=== PATIENT | male | born 1940 | race African-American/Black ===

== ENCOUNTER 2017-04-01 05:42 | Inpatient (IN) | payer MEDICARE ==
[~2017-04-01] VITALS: Ht 188 cm; Wt 92.1 kg
--- NOTE | 2017-04-01 06:07 | NUR ---
Pt BIB private ambulance from [facility] for medical clearance for psych unit.
[2017-04-01] MEDS ORDERED: GABA-534 PO (06:11)
[2017-04-01] MEDS ORDERED: IBUP-1955 PO (06:11)
[2017-04-01] MEDS ORDERED: DULO60CA45 PO (06:11)
[2017-04-01] MEDS ORDERED: QUET200T PO (06:11)
[2017-04-01] MEDS ORDERED: GABA600T2 PO (06:11)
[2017-04-01] MEDS ORDERED: METO25TA6 PO (06:11)
[2017-04-01] MEDS ORDERED: TRAMADOL HCL 50 MG TABLET PO ONE (07:00)
[2017-04-01] MEDS ORDERED: GABAPENTIN 300 MG CAPSULE PO ONE ×2 (07:15→07:30)
[2017-04-01] MEDS ORDERED: TRAMADOL HCL 50 MG TABLET ONE (07:21)
--- NOTE | 2017-04-01 07:21 | NUR ---
Report given to Kenia day shift RN.
--- NOTE | 2017-04-01 07:30 | NUR ---
[facility] tray provided. pt finished it with good appetite
[2017-04-01] MEDS ORDERED: GABAPENTIN 300 MG CAPSULE ONE ×2 (07:42→07:52)
[2017-04-01 08:15] VITALS: BP 131/70
--- NOTE | 2017-04-01 08:16 | NUR ---
pt transfered to [facility] in stable condition with all his belongings
[2017-04-01] MEDS ORDERED: TEMAZEPAM 7.5 MG CAPSULE PO PRN (08:45)
[2017-04-01] MEDS ORDERED: MAGNESIUM HYDROXIDE 30 ML LIQUID UDC PO PRN (08:45)
[2017-04-01] MEDS ORDERED: DULOXETINE 60 MG CAPSULE.DR PO ONE (09:00)
--- NOTE | 2017-04-01 10:00 | NUR ---
0815 Admit to [facility] ER via w/c , placed 5150 DTS ,Depressed with SI. Admission done and Dr. Cuello and GEOLOGIC TECHNICIAN Oren Jeong notified of the admission with order.
[2017-04-01] MEDS ORDERED: TOPIRAMATE 25 MG TABLET PO SCH (13:00)
[2017-04-01] MEDS ORDERED: GABAPENTIN 300 MG CAPSULE PO SCH (13:00)
[2017-04-01] MEDS ORDERED: PNEUMOCOCCAL 23-VAL P-SAC VAC 0.5 ML VIAL IM ONE (13:45)
[2017-04-01 15:00] VITALS: BP 136/86
[2017-04-01] MEDS: METOPROLOL TARTRATE 25 MG TABLET PO SCH (16:22)
[2017-04-01 20:14] VITALS: BP 111/61
[2017-04-01] MEDS: LORAZEPAM 1 MG TABLET PO PRN (21:06)
[2017-04-01] MEDS: FINASTERIDE 5 MG TABLET PO SCH (21:06)
[2017-04-01] MEDS: QUETIAPINE FUMARATE 200 MG TABLET PO SCH (22:55)
[2017-04-01] MEDS: TRAZODONE 100 MG TABLET PO SCH (22:55)
[2017-04-01] MEDS ORDERED: TRAZODONE 100 MG TABLET ONE (23:12)
[2017-04-02 07:30] VITALS: BP 187/95
[2017-04-02] MEDS: METOPROLOL TARTRATE 25 MG TABLET PO SCH (08:15)
[2017-04-02] MEDS: ALFUZOSIN HCL 10 MG TAB.SR.24H PO SCH (08:19)
[2017-04-02] MEDS: DIVALPROEX 250 MG TABLET.DR PO SCH ×3 (09:30→16:24)
[2017-04-02] MEDS: QUETIAPINE FUMARATE 25 MG TABLET PO SCH (09:30)
[2017-04-02 16:26] VITALS: BP 152/77
[2017-04-02 20:54] VITALS: BP 133/81
[2017-04-02] MEDS: TRAZODONE 100 MG TABLET PO SCH (21:00)
[2017-04-02] MEDS: FINASTERIDE 5 MG TABLET PO SCH (21:08)
[2017-04-02] MEDS: ATORVASTATIN 10 MG TABLET PO SCH (21:08)
[2017-04-02] MEDS: QUETIAPINE FUMARATE 200 MG TABLET PO SCH (21:08)
[2017-04-03 07:30] VITALS: BP 139/74
[2017-04-03] MEDS: QUETIAPINE FUMARATE 25 MG TABLET PO SCH (08:27)
[2017-04-03] MEDS: DIVALPROEX 250 MG TABLET.DR PO SCH ×3 (08:27→17:16)
[2017-04-03] MEDS: METOPROLOL TARTRATE 25 MG TABLET PO SCH (08:27)
[2017-04-03] MEDS: ALFUZOSIN HCL 10 MG TAB.SR.24H PO SCH (09:33)
[2017-04-03 17:12] VITALS: BP 139/82
[2017-04-03 19:50] VITALS: BP 135/76
[2017-04-03] MEDS: QUETIAPINE FUMARATE 200 MG TABLET PO SCH (21:31)
[2017-04-03] MEDS: ATORVASTATIN 10 MG TABLET PO SCH (21:31)
[2017-04-03] MEDS: FINASTERIDE 5 MG TABLET PO SCH (21:32)
[2017-04-03] MEDS: TRAZODONE 100 MG TABLET PO SCH (21:32)
[2017-04-04 07:45] VITALS: BP 127/78
[2017-04-04] MEDS: QUETIAPINE FUMARATE 100 MG TABLET PO SCH (10:03)
[2017-04-04] MEDS: DIVALPROEX 250 MG TABLET.DR PO SCH ×3 (10:03→17:52)
[2017-04-04] MEDS: METOPROLOL TARTRATE 25 MG TABLET PO SCH (10:04)
[2017-04-04] MEDS: ALFUZOSIN HCL 10 MG TAB.SR.24H PO SCH (10:04)
--- NOTE | 2017-04-04 11:30 | NUR ---
Initial DC Plan: Patient jorge resides at the [facility] ([facility]) [[address]; [place] [address]]. Patient does not want any family involved in his discharge plans. SW will follow up with MD and patient to discuss most appropriate discharge plans. Patient will be provided a brief substance abuse intervention. SW will form a safe and proper discharge.
--- NOTE | 2017-04-04 11:45 | NUR ---
Fire[employer] Reporting: SUSI submitted Mental Health Report to [facility] on 04/04.
[2017-04-04] MEDS: ACETAMINOPHEN 325 MG TABLET PO PRN (12:09)
[2017-04-04] MEDS: GABAPENTIN 300 MG CAPSULE PO SCH ×2 (14:18→17:52)
[2017-04-04 16:41] VITALS: BP 140/87
[2017-04-04] MEDS: TRAZODONE 100 MG TABLET PO SCH (20:00)
[2017-04-04] MEDS: ATORVASTATIN 10 MG TABLET PO SCH (20:01)
[2017-04-04] MEDS: FINASTERIDE 5 MG TABLET PO SCH (20:01)
[2017-04-04] MEDS: QUETIAPINE FUMARATE 200 MG TABLET PO SCH (20:02)
[2017-04-04 20:48] VITALS: BP 160/88
--- NOTE | 2017-04-04 22:00 | NUR ---
received to care, lying in bed, pleasant upon approach. no interactions, noted, with peers. compliant with medications and staff direction. as of 2200, he appears to be asleep. no distress noted. will continue to monitor closely.
[2017-04-05] MEDS: LORAZEPAM 1 MG TABLET PO PRN (02:01)
--- NOTE | 2017-04-05 02:01 | NUR ---
pt is now awake. c/o anxiety. PRN ativan was given at this time.
--- NOTE | 2017-04-05 02:40 | NUR ---
appears to be asleep. no distress noted.
[2017-04-05 08:00] VITALS: BP 143/97
[2017-04-05] MEDS: GABAPENTIN 300 MG CAPSULE PO SCH ×3 (08:14→17:35)
[2017-04-05] MEDS: QUETIAPINE FUMARATE 100 MG TABLET PO SCH (08:14)
[2017-04-05] MEDS: METOPROLOL TARTRATE 25 MG TABLET PO SCH (08:15)
[2017-04-05] MEDS: DIVALPROEX 250 MG TABLET.DR PO SCH ×3 (08:15→17:35)
[2017-04-05] MEDS: ALFUZOSIN HCL 10 MG TAB.SR.24H PO SCH (08:17)
[2017-04-05 16:00] VITALS: BP 132/66
--- NOTE | 2017-04-05 16:08 | NUR ---
[employer] Note: Subjective: "Its all about their careers and the money. Why is every conversation about money?" Objective: Pt sat with good posture and made consistent eye contact throughout the session. Pt displayed a full range of affect, laughing as he made jokes and animating his suicide attempt with a frown. Pt presented with paranoid delusions as evidenced by statements of being followed and recorded by the [facility] for 6 months and aliens walking among us. Pt presented as depressed because he stated he wanted to take enough drugs to blow up his heart. Pt appears to have insight into his situation because he stated his two options are morphine or to suffer and that nobody will help him get his morphine because they think he's "a junkie." Pt expressed annoyance with his siblings who only call when they want money. Assessment: SW will encourage pt to establish coping mechanisms for his despair, frustration, and chronic pain. SW will encourage pt to build relationships with his peers to lessen his isolation. Plan: Pt will attend group again tomorrow. Pt will advocate for himself if he feels he is not getting the treatment he deserves.
[2017-04-05] MEDS: IBUPROFEN 600 MG TABLET PO PRN (18:19)
[2017-04-05] MEDS: MAG HYDROX/AL HYDROX/SIMETH 30 ML LIQUID UDC PO PRN (19:45)
[2017-04-05 20:00] VITALS: BP 162/87
[2017-04-05] MEDS: TRAZODONE 100 MG TABLET PO SCH (20:31)
[2017-04-05] MEDS: QUETIAPINE FUMARATE 200 MG TABLET PO SCH (20:35)
[2017-04-05] MEDS: FINASTERIDE 5 MG TABLET PO SCH (20:36)
[2017-04-05] MEDS: ATORVASTATIN 10 MG TABLET PO SCH (20:36)
--- NOTE | 2017-04-05 22:00 | NUR ---
received to care, watching tv with peers, pleasant upon approach. remains compliant with medications and staff direction. denies SI, or any desire to harm self, or others. as of 2199, he appears to be asleep. no distress noted. will continue to monitor closely.
[2017-04-06 07:30] VITALS: BP 150/90
[2017-04-06] MEDS: IBUPROFEN 600 MG TABLET PO PRN (08:16)
[2017-04-06] MEDS: GABAPENTIN 300 MG CAPSULE PO SCH ×3 (08:16→16:25)
[2017-04-06] MEDS: QUETIAPINE FUMARATE 100 MG TABLET PO SCH (08:17)
[2017-04-06] MEDS: ALFUZOSIN HCL 10 MG TAB.SR.24H PO SCH (08:18)
[2017-04-06] MEDS: METOPROLOL TARTRATE 25 MG TABLET PO SCH (08:20)
[2017-04-06] MEDS: DIVALPROEX 250 MG TABLET.DR PO SCH ×3 (08:20→16:25)
[2017-04-06 15:00] VITALS: BP 134/82
[2017-04-06 20:03] VITALS: BP 136/81
[2017-04-06] MEDS: TRAZODONE 100 MG TABLET PO SCH (20:17)
[2017-04-06] MEDS: ATORVASTATIN 10 MG TABLET PO SCH (20:17)
[2017-04-06] MEDS: FINASTERIDE 5 MG TABLET PO SCH (20:17)
[2017-04-06] MEDS: QUETIAPINE FUMARATE 200 MG TABLET PO SCH (20:17)
[2017-04-07 07:30] VITALS: BP 157/79
[2017-04-07] MEDS: DIVALPROEX 250 MG TABLET.DR PO SCH ×3 (08:24→16:27)
[2017-04-07] MEDS: LEVOTHYROXINE SODIUM 50 MCG TABLET PO SCH (08:24)
[2017-04-07] MEDS: GABAPENTIN 300 MG CAPSULE PO SCH ×3 (08:24→16:27)
[2017-04-07] MEDS: ALFUZOSIN HCL 10 MG TAB.SR.24H PO SCH (08:25)
[2017-04-07] MEDS: METOPROLOL TARTRATE 25 MG TABLET PO SCH (08:29)
[2017-04-07 15:00] VITALS: BP 155/89
[2017-04-07 20:17] VITALS: BP 132/77
[2017-04-07] MEDS: FINASTERIDE 5 MG TABLET PO SCH (20:36)
[2017-04-07] MEDS: TRAZODONE 100 MG TABLET PO SCH (20:38)
[2017-04-07] MEDS: QUETIAPINE FUMARATE 200 MG TABLET PO SCH (20:38)
[2017-04-07] MEDS: ATORVASTATIN 10 MG TABLET PO SCH (20:38)
[2017-04-08 07:30] VITALS: BP 149/95
[2017-04-08] MEDS: LEVOTHYROXINE SODIUM 50 MCG TABLET PO SCH (08:04)
[2017-04-08] MEDS: GABAPENTIN 300 MG CAPSULE PO SCH ×3 (08:04→16:00)
[2017-04-08] MEDS: ALFUZOSIN HCL 10 MG TAB.SR.24H PO SCH (08:04)
[2017-04-08] MEDS: METOPROLOL TARTRATE 25 MG TABLET PO SCH (08:05)
[2017-04-08] MEDS: DIVALPROEX 250 MG TABLET.DR PO SCH ×2 (08:06→12:03)
[2017-04-08] MEDS: FLUOXETINE HCL 20 MG CAPSULE PO SCH (08:06)
[2017-04-08 15:16] VITALS: BP 145/78
[2017-04-08] MEDS: MAG HYDROX/AL HYDROX/SIMETH 30 ML LIQUID UDC PO PRN (15:28)
[2017-04-08] MEDS: FINASTERIDE 5 MG TABLET PO SCH (20:26)
[2017-04-08] MEDS: QUETIAPINE FUMARATE 200 MG TABLET PO SCH (20:27)
[2017-04-08] MEDS: ATORVASTATIN 10 MG TABLET PO SCH (20:28)
[2017-04-08] MEDS: TRAZODONE 100 MG TABLET PO SCH (20:28)
[2017-04-08] MEDS: DIVALPROEX 500 MG TABLET.DR PO SCH (20:29)
[2017-04-08 20:37] VITALS: BP 137/85
[2017-04-09] MEDS: LEVOTHYROXINE SODIUM 50 MCG TABLET PO SCH (06:58)
[2017-04-09 07:30] VITALS: BP 164/94
[2017-04-09 07:39] LABS: BASOPHILS # (AUTO) 0.1 K/uL (0.0-8.0); BASOPHILS % (AUTO) 1.2 % (0.0-2.0); EOSINOPHILS # (AUTO) 0.1 K/uL (0.0-0.7); EOSINOPHILS % (AUTO) 2.9 % (0.0-7.0); HEMATOCRIT 36.3 % (36.7-47.1); HEMOGLOBIN 11.9 g/dL (12.5-16.3); LYMPHOCYTES # (AUTO) 1.5 K/uL (20.0-40.0); LYMPHOCYTES % (AUTO) 33.2 % (20.5-51.5); MEAN CORPUSCULAR HEMOGLOBIN 28.1 uug (23.8-33.4); MEAN CORPUSCULAR HGB CONC 33 g/dL (32.5-36.3); MONOCYTES # (AUTO) 0.4 K/uL (2.0-10.0); MONOCYTES % (AUTO) 8.8 % (0.0-11.0); NEUTROPHILS # (AUTO) 2.5 K/uL (1.8-8.9); NEUTROPHILS % (AUTO) 53.9 % (38.5-71.5); PLATELET COUNT (AUTO) 184 K/uL (152-348); RED BLOOD CELL COUNT(AUTO) 4.22 MIL/uL (4.06-5.63); WHITE BLOOD COUNT (AUTO) 4.6 K/uL (3.6-10.2)
[2017-04-09 07:48] LABS: CARBON DIOXIDE 30 mmol/L (21-32); CHLORIDE 104 mmol/L (98-107); CREATININE 1.1 mg/dL (0.6-1.3); GLUCOSE 108 mg/dL (74-106); MAGNESIUM 2.2 mg/dL (1.8-2.4); PHOSPHOROUS 3.6 mg/dL (2.5-4.9); POTASSIUM 4.2 mmol/L (3.5-5.1); UREA NITROGEN, BLOOD 19 mg/dL (7-18)
[2017-04-09] MEDS: DIVALPROEX 250 MG TABLET.DR PO SCH ×2 (08:00→12:12)
[2017-04-09] MEDS: FLUOXETINE HCL 20 MG CAPSULE PO SCH (08:00)
[2017-04-09] MEDS: GABAPENTIN 300 MG CAPSULE PO SCH ×3 (08:00→16:17)
[2017-04-09] MEDS: ALFUZOSIN HCL 10 MG TAB.SR.24H PO SCH (08:00)
[2017-04-09] MEDS: METOPROLOL TARTRATE 25 MG TABLET PO SCH (08:01)
[2017-04-09 16:00] VITALS: BP 133/61
[2017-04-09 19:59] VITALS: BP 148/85
[2017-04-09] MEDS: QUETIAPINE FUMARATE 200 MG TABLET PO SCH (21:06)
[2017-04-09] MEDS: ATORVASTATIN 10 MG TABLET PO SCH (21:06)
[2017-04-09] MEDS: DIVALPROEX 500 MG TABLET.DR PO SCH (21:06)
[2017-04-09] MEDS: FINASTERIDE 5 MG TABLET PO SCH (21:06)
[2017-04-09] MEDS: TRAZODONE 100 MG TABLET PO SCH (21:06)
[2017-04-10] MEDS: LEVOTHYROXINE SODIUM 50 MCG TABLET PO SCH (06:28)
[2017-04-10 07:30] VITALS: BP 163/97
[2017-04-10] MEDS: FLUOXETINE HCL 20 MG CAPSULE PO SCH (08:23)
[2017-04-10] MEDS: GABAPENTIN 300 MG CAPSULE PO SCH ×3 (08:23→16:26)
[2017-04-10] MEDS: DIVALPROEX 250 MG TABLET.DR PO SCH ×2 (08:23→12:22)
[2017-04-10] MEDS: ALFUZOSIN HCL 10 MG TAB.SR.24H PO SCH (08:23)
[2017-04-10] MEDS: METOPROLOL TARTRATE 25 MG TABLET PO SCH (08:26)
[2017-04-10 15:23] VITALS: BP 161/86
[2017-04-10 19:37] VITALS: BP 166/82
[2017-04-10] MEDS: ACETAMINOPHEN 325 MG TABLET PO PRN (20:06)
[2017-04-10] MEDS: QUETIAPINE FUMARATE 200 MG TABLET PO SCH (20:39)
[2017-04-10] MEDS: FINASTERIDE 5 MG TABLET PO SCH (20:39)
[2017-04-10] MEDS: ATORVASTATIN 10 MG TABLET PO SCH (20:39)
[2017-04-10] MEDS: DIVALPROEX 500 MG TABLET.DR PO SCH (20:40)
[2017-04-10] MEDS: TRAZODONE 100 MG TABLET PO SCH (20:40)
--- NOTE | 2017-04-10 22:00 | NUR ---
received to care, in activity room, with peers, watching tv. pleasant upon approach. compliant with medications and staff direction. denies SI, or any desire to harm self, or others. as of 2199, he appears to be asleep. no distress noted. will continue to monitor closely.
[2017-04-11] MEDS: LEVOTHYROXINE SODIUM 50 MCG TABLET PO SCH (06:39)
[2017-04-11 07:30] VITALS: BP 182/96
[2017-04-11] MEDS: ALFUZOSIN HCL 10 MG TAB.SR.24H PO SCH (08:16)
[2017-04-11] MEDS: METOPROLOL TARTRATE 25 MG TABLET PO SCH (08:17)
[2017-04-11] MEDS: GABAPENTIN 300 MG CAPSULE PO SCH ×3 (08:17→17:45)
[2017-04-11] MEDS: FLUOXETINE HCL 20 MG CAPSULE PO SCH (08:18)
[2017-04-11] MEDS: DIVALPROEX 250 MG TABLET.DR PO SCH ×2 (08:18→13:31)
[2017-04-11] MEDS: QUETIAPINE FUMARATE 100 MG TABLET PO SCH (08:18)
[2017-04-11 08:43] LABS: THYROID STIMULATING HORMONE 5.607 mIU/mL (0.358-3.740)
[2017-04-11] MEDS ORDERED: hydrALAZINE HCL 25 MG TABLET PO PRN (12:30)
[2017-04-11] MEDS ORDERED: METOPROLOL TARTRATE 50 MG TABLET PO ONE (12:30)
[2017-04-11] MEDS: METOPROLOL TARTRATE 50 MG TABLET PO SCH ×2 (12:34→20:33)
--- NOTE | 2017-04-11 14:49 | NUR ---
Referred by deputy clerk of court as patient requesting non compliance food items with current diet(cardiac) Patient is requesting 3 cooked egg Spoke with the patient and explain the reason why dietary can not provide all three eggs per day. spoke with the charge nurse and request to speak with MD about current diet restrictions as patient lipids labs wnl, rec 2gm NA diet, patient has elevated blood pressure. Addendum: 04/11/17 at [address] Amended: Links added.
[2017-04-11 15:46] VITALS: BP 152/92
--- NOTE | 2017-04-11 19:27 | NUR ---
denies s.i. no out bursts in day room and minimal peer interaction with room mate continue to monitor for safety
[2017-04-11 20:14] VITALS: BP 166/84
[2017-04-11] MEDS: FINASTERIDE 5 MG TABLET PO SCH (20:32)
[2017-04-11] MEDS: MAG HYDROX/AL HYDROX/SIMETH 30 ML LIQUID UDC PO PRN (20:32)
[2017-04-11] MEDS: ATORVASTATIN 10 MG TABLET PO SCH (20:32)
[2017-04-11] MEDS: DIVALPROEX 500 MG TABLET.DR PO SCH (20:33)
[2017-04-11] MEDS: QUETIAPINE FUMARATE 200 MG TABLET PO SCH (20:33)
[2017-04-11] MEDS: TRAZODONE 100 MG TABLET PO SCH (20:33)
--- NOTE | 2017-04-11 22:00 | NUR ---
received to care, sitting in activity room, with peers, watching tv. pleasant upon approach. compliant with medications and staff direction. denies SI, or any desire to harm self, or others. as of 2199, he appears to be asleep. no distress noted. will continue to monitor closely.
[2017-04-12 00:30] VITALS: BP 148/76
[2017-04-12] MEDS: LEVOTHYROXINE SODIUM 50 MCG TABLET PO SCH (06:07)
[2017-04-12] MEDS: AMLODIPINE 10 MG TABLET PO SCH (09:00)
[2017-04-12] MEDS: METOPROLOL TARTRATE 50 MG TABLET PO SCH ×2 (09:00→20:24)
[2017-04-12] MEDS: GABAPENTIN 300 MG CAPSULE PO SCH ×3 (09:27→17:57)
[2017-04-12] MEDS: QUETIAPINE FUMARATE 100 MG TABLET PO SCH (09:28)
[2017-04-12] MEDS: LORAZEPAM 1 MG TABLET PO PRN (09:28)
[2017-04-12] MEDS: FLUOXETINE PO SCH (09:28)
[2017-04-12] MEDS: DIVALPROEX 250 MG TABLET.DR PO SCH ×2 (09:28→13:43)
[2017-04-12] MEDS: ALFUZOSIN HCL 10 MG TAB.SR.24H PO SCH (09:29)
[2017-04-12 16:15] VITALS: BP 150/86
[2017-04-12] MEDS: ACETAMINOPHEN 325 MG TABLET PO PRN (20:21)
[2017-04-12] MEDS: FINASTERIDE 5 MG TABLET PO SCH (20:22)
[2017-04-12] MEDS: ATORVASTATIN 10 MG TABLET PO SCH (20:22)
[2017-04-12] MEDS: QUETIAPINE FUMARATE 200 MG TABLET PO SCH (20:22)
[2017-04-12] MEDS: TRAZODONE 100 MG TABLET PO SCH (20:23)
[2017-04-12] MEDS: DIVALPROEX 500 MG TABLET.DR PO SCH (20:23)
[2017-04-12 20:39] VITALS: BP 141/70
--- NOTE | 2017-04-13 01:29 | NUR ---
pt is now awake. PRN restoril given for insomnia.
--- NOTE | 2017-04-13 02:05 | NUR ---
appears to be asleep. no distress noted.
[2017-04-13] MEDS: LEVOTHYROXINE SODIUM 50 MCG TABLET PO SCH (06:27)
[2017-04-13] MEDS: ACETAMINOPHEN 325 MG TABLET PO PRN (07:45)
[2017-04-13] MEDS: AMLODIPINE 10 MG TABLET PO SCH (09:05)
[2017-04-13] MEDS: ALFUZOSIN HCL 10 MG TAB.SR.24H PO SCH (09:05)
[2017-04-13] MEDS: QUETIAPINE FUMARATE 100 MG TABLET PO SCH (09:06)
[2017-04-13] MEDS: DIVALPROEX 250 MG TABLET.DR PO SCH (09:06)
[2017-04-13] MEDS: FLUOXETINE PO SCH (09:06)
[2017-04-13 09:07] VITALS: BP 169/84
[2017-04-13] MEDS: METOPROLOL TARTRATE 50 MG TABLET PO SCH (09:07)
[2017-04-13] MEDS: GABAPENTIN 300 MG CAPSULE PO SCH (09:07)
--- NOTE | 2017-04-13 09:49 | NUR ---
DC Note: Patient will be discharged home [[facility]: [address] [place] [address]; ] via taxi today. Patient is alert and oriented x4 and agreeable to discharge plans. SW spoke with patient's case maker Quang at the [facility] [[phone]] who is aware and agreeable to discharge plans. Patient will follow up with his primary physician Dr. De León and psychiatrist Dr. Reynaga [[address] [place] [address]; ]. Patient was also referred to [facility] [[address] [place] [address],[facility]; ]. Patient was provided with additional outpatient mental health resources to [facility] , [facility] , and the [place] [facility] Prevention [facility] . Patient was provided a brief substance abuse intervention and provided outpatient referrals including: [facility] [[phone]], [facility] [[phone]], and [facility] [[phone]]. Patient was encouraged to present at [facility] on 04/14 at 9am for intake to address substance dependency.
--- NOTE | 2017-04-13 11:39 | NUR ---
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 Hesitancy to leave noted, reassures. Emphasized follow up with [facility] on 04/14/17 at 0900 am. Patient was provided with additional out patient Health resources to [facility] ,National Su[facility] Prevention [facility] [place] alcohol and drug abuse per [employer] Up Worker. Discharged to Home via Taxi- with voucher, all belongings given back to patient.No complaints noted, pt. was in good spirit.
== END 2017-04-13 11:45 | disposition home or self-care (01) | DRG 885 ==
LOC: ER 05:46 → GPS 08:10
PROVIDERS: ADMIT Psychiatry & Neurology Psychiatry; ATTEND Nurse Practitioner Acute Care
DX: F31.5 Bipolar disorder, current episode depressed, severe, with psychotic features (principal); G62.9 Polyneuropathy, unspecified; E03.9 Hypothyroidism, unspecified; F14.10 Cocaine abuse, uncomplicated; Z62.810 Personal history of physical and sexual abuse in childhood; Z62.811 Personal history of psychological abuse in childhood; N40.0 Benign prostatic hyperplasia without lower urinary tract symptoms; I10 Essential (primary) hypertension; E78.5 Hyperlipidemia, unspecified; G47.9 Sleep disorder, unspecified; R51 Headache
CPT/HCPCS: 36415; 71045; 80164; 83735; 84100; 84443; 85025; 90732; 93005; A4663; J3490; J8499